=== PATIENT | male | born 1985 | race Two or more races ===

== ENCOUNTER 2020-06-02 06:13 | Inpatient (IN) | payer MEDICAID ==
[2020-06-02] VITALS (14 sets, daily range): BP systolic 100–140; BP diastolic 54–92
[~2020-06-02] VITALS: Ht 167.6 cm; Wt 71.2 kg
--- NOTE | 2020-06-02 06:15 | NUR ---
bibra 102 from home c/o sob and fatigue x 2 days; also epigastric pain x 3 days ago, which has resolved on arrival. pt noted anxious at this time; pt to bed 6, aaox4, -sob, nad noted, placed on monitor, vss, pending er provider amaury
[2020-06-02] MEDS ORDERED: ONDANSETRON HCL/PF 4 MG/2 ML VIAL ONE (06:52)
[2020-06-02] MEDS ORDERED: LORAZEPAM INJ 2 MG/ML VIAL ONE (06:52)
[2020-06-02] MEDS ORDERED: IV NS 0.9% 1,000 ML BAG IV ONE ×2 (07:00→07:30)
[2020-06-02] MEDS ORDERED: ONDANSETRON HCL/PF 4 MG/2 ML VIAL IVP ONE (07:00)
[2020-06-02] MEDS ORDERED: LORAZEPAM INJ 2 MG/ML VIAL IV ONE (07:00)
[2020-06-02] MEDS ORDERED: INSULIN REGULAR, HUMAN 100 UNIT in IV NS 0.9% 99 ML IV STA ×2 (07:05)
--- NOTE | 2020-06-02 07:14 | NUR ---
called pharm for insulin drip
[2020-06-02 07:18] LABS: BASOPHILS % (AUTO) 0.1 % (0.0-2.0); HEMATOCRIT 57 % (39-51); LYMPHOCYTES # (AUTO) 0.4 /CMM (0.8-4.8); LYMPHOCYTES % (AUTO) 3.9 % (20.0-44.0); MEAN CORPUSCULAR HGB CONC 34 g/dl (31.0-36.0); MEAN CORPUSCULAR VOLUME 99 fL (80-96); MONOCYTES # (AUTO) 1.6 /CMM (0.1-1.30); MONOCYTES % (AUTO) 14.3 % (2.0-12.0); NEUTROPHILS # (AUTO) 9.1 /CMM (1.8-8.9); NEUTROPHILS % (AUTO) 81.7 % (43.0-81.0); PLATELET COUNT (AUTO) 278 /CMM (150-450); RED BLOOD CELL COUNT(AUTO) 5.74 MIL/uL (4.5-6.0); WHITE BLOOD COUNT (AUTO) 11.2 K/uL (4.3-11.0)
[2020-06-02 07:24] LABS: ABG BASE EXCESS -24.9 mmol/L; ABG OXYGEN SATURATION 97.3 % (92.0-98.5); ABG PCO2 11.5 mmHg (35.0-45.0); ABG PH 7.051 (7.350-7.450); ABG PO2 126.8 mmHg (75.0-100.0); AaDO2 9.2 mmHg; COHb 0.3 % (0.5-1.5); MetHb 0.5 % (0.0-1.5); O2Hb 96.5 % (94.0-97.0); SITE, ABG Right Radial; VENT MODE, BG ROOM AIR
[2020-06-02 07:25] LABS: HEMOGLOBIN 19.1 g/dL (13.5-17.5)
[2020-06-02] MEDS ORDERED: INSULIN REGULAR, HUMAN 100 UNIT/ML 10 ML VIAL ONE (07:28)
[2020-06-02] MEDS ORDERED: INSULIN REGULAR, HUMAN 100 UNIT/ML 10 ML VIAL IV ONE (07:30)
[2020-06-02 07:36] LABS: ALANINE AMINOTRANSFERASE 205 U/L (12-78); ALKALINE PHOSPHATASE 107 U/L (46-116); ASPARTATE AMINOTRANSFERASE 86 U/L (15-37); BILIRUBIN,DIRECT 0.2 mg/dL (0.0-0.2); BILIRUBIN,TOTAL 0.8 mg/dL (0.2-1.0); CALCIUM, SERUM 7.8 mg/dL (8.5-10.1); CREATININE 1.5 mg/dL (0.6-1.3); LIPASE 279 U/L (73-393); POTASSIUM 2.9 mmol/L (3.5-5.1); SODIUM SERUM 121 mmol/L (136-145); TOTAL PROTEIN, SERUM 8.5 g/dL (6.4-8.2); UREA NITROGEN, BLOOD 30 mg/dL (7-18)
--- NOTE | 2020-06-02 07:43 | NUR ---
CALLED [facility]RE[facility]
[2020-06-02 07:50] LABS: CARBON DIOXIDE 5 mmol/L (21-32); CHLORIDE 79 mmol/L (98-107); GLUCOSE 429 mg/dL (74-106)
[2020-06-02 08:03] LABS: BAND % (MANUAL) 4 % (0.0-5.0); LYMPHOCYTES % (MANUAL) 4 % (16-48); MONOCYTES % (MANUAL) 11 % (0-11.0); NEUTROPHILS % (MANUAL) 81 (42-76)
--- NOTE | 2020-06-02 08:09 | NUR ---
[facility] PANEL PAGED X2 -EDDI MENDEZ
--- NOTE | 2020-06-02 08:49 | NUR ---
ROOM GIVEN 256 ICU.
[2020-06-02] MEDS ORDERED: CEFTRIAXONE 1GM BAG (ER ONLY) 1 GM/50 ML PIGGYBACK IV ONE (09:00)
[2020-06-02] MEDS ORDERED: AZITHROMYCIN 500 MG in IV D5W 250 ML IV ONE (09:00)
[2020-06-02] MEDS ORDERED: CEFTRIAXONE 1GM BAG (ER ONLY) 50 ML IV ONE (09:01)
--- NOTE | 2020-06-02 09:03 | NUR ---
report given to reza frank for syed; pt will be transported to icu
--- NOTE | 2020-06-02 09:20 | NUR ---
PT ARRIVED IN ICU ROOM 255. PT SOB, ALERT OX3. ANSWERS QUESTIONS APPROPRIATELY. DR. EDDI MENDEZ NOTIFIED FOR NEED FOR INPATIENT ORDERS. PT STATES HIS COUSIN WAS COVID POSITIVE AND HIS WHOLE FAMILY LIVES TOGETHER. 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 INSULIN GTT INFUSING FROM ER. WILL CONTINUE TO MONITOR.
[2020-06-02] MEDS ORDERED: POTASSIUM CHLORIDE 20 MEQ TAB.PRT.SR PO ONE (09:30)
[2020-06-02] MEDS ORDERED: IV NS 0.9% 1,000 ML IV STA (11:04)
[2020-06-02] MEDS ORDERED: Z GUARD REMEDY 2 OZ OINT TP PRN (11:30)
[2020-06-02] MEDS ORDERED: IV NS 0.9% 1,000 ML IV PRN (11:30)
[2020-06-02] MEDS: INSULIN REGULAR, HUMAN 100 UNIT in IV NS 0.9% 99 ML IV PRN ×4 (11:30→20:38)
[2020-06-02] MEDS ORDERED: LORAZEPAM INJ 2 MG/ML VIAL IV PRN (11:30)
[2020-06-02 11:47] LABS: BASOPHILS % (AUTO) 0.1 % (0.0-2.0); HEMATOCRIT 50 % (39-51); HEMOGLOBIN 17.1 g/dL (13.5-17.5); LYMPHOCYTES # (AUTO) 0.4 /CMM (0.8-4.8); LYMPHOCYTES % (AUTO) 3.3 % (20.0-44.0); MEAN CORPUSCULAR HGB CONC 34 g/dl (31.0-36.0); MEAN CORPUSCULAR VOLUME 98 fL (80-96); MONOCYTES # (AUTO) 2.1 /CMM (0.1-1.30); MONOCYTES % (AUTO) 19.1 % (2.0-12.0); NEUTROPHILS # (AUTO) 8.6 /CMM (1.8-8.9); NEUTROPHILS % (AUTO) 77.5 % (43.0-81.0); PLATELET COUNT (AUTO) 218 /CMM (150-450); RED BLOOD CELL COUNT(AUTO) 5.14 MIL/uL (4.5-6.0); WHITE BLOOD COUNT (AUTO) 11.1 K/uL (4.3-11.0)
[2020-06-02] MEDS: ENOXAPARIN SODIUM 40 MG/0.4 ML DISP.SYRIN SQ SCH (12:47)
[2020-06-02] MEDS ORDERED: INVESTIGATIONAL MED MISC 1 EA in IV NS 0.9% 250 ML IV ONE (13:00)
[2020-06-02] MEDS: POTASSIUM CL. PREMIX PERIPHER. 50 ML IV SCH ×6 (13:06→18:55)
[2020-06-02] MEDS: DEXAMETHASONE SOD PHOSPHATE 10 MG/ML VIAL IV SCH (13:06)
[2020-06-02 14:05] LABS: LYMPHOCYTES % (MANUAL) 6 % (16-48); MONOCYTES % (MANUAL) 18 % (0-11.0); NEUTROPHILS % (MANUAL) 76 (42-76)
[2020-06-02 14:44] LABS: MAGNESIUM 2.7 mg/dL (1.8-2.4); POTASSIUM 3.1 mmol/L (3.5-5.1)
[2020-06-02 14:57] LABS: PHOSPHORUS 0.7 mg/dL (2.5-4.9)
--- NOTE | 2020-06-02 15:22 | NUR ---
LAB NOTIFIED RN OF CRITICAL PHOS OF 0.7, AND CO2 OF 8. DR. MAY AND DR. EDDI MENDEZ IN ICU, AWARE. DR. MAY ORDERED TO STOP THE INSULIN AT THIS TIME AND IS PUTTING IN MORE ORDERS. WILL CONTINUE TO MONITOR. RN ALSO RECEIVED CALL FROM PATIENTS SISTER TROY, . RN GAVE UPDATE INFORMATION TO TROY, OK'D BY PATIENT. PT WAS NOT ABLE TO REMEMBER FAMILY MEMBERS PHONE NUMBERS AND HE WANTED TO LET HIS FAMILY KNOW HE WAS ADMITTED TO THE HOSPITAL. RN INFORMED PATIENT THAT TROY WILL INFORM THE REST OF THE FAMILY AND WILL BE THE MAIN CONTACT PER FOR THE PATIENT SINCE PATIENTS MOTHER POLO DOES NOT SPEAK A LOT OF UZBEK. POLO'S NUMBER IS [phone]. RN WILL UPDATE ADMISSIONS WITH BOTH PHONE NUMBERS. Addendum: 06/02/20 at 1539 by KYM NASCIMENTO RN CORRECTION DR. MAY DOES NOT WANT THE INSULIN GTT STOPPED AT THIS TIME. HE DOES NOT WANT ANY DEXTROSE GIVEN UNTIL PATIENTS PHOSPHORUS GOES BACK TO NORMAL.
[2020-06-02 15:36] LABS: CALCIUM, SERUM 6.2 mg/dL (8.5-10.1); CREATININE 0.9 mg/dL (0.6-1.3); MAGNESIUM 2.4 mg/dL (1.8-2.4); PHOSPHORUS 0.5 mg/dL (2.5-4.9); POTASSIUM 3.6 mmol/L (3.5-5.1)
[2020-06-02] MEDS ORDERED: K PHOS NEUTRAL 250 MG TABLET PO ONE ×3 (16:00→23:30)
[2020-06-02 16:35] LABS: CALCIUM, SERUM 6.7 mg/dL (8.5-10.1); CHLORIDE 93 mmol/L (98-107); CREATININE 0.9 mg/dL (0.6-1.3); GLUCOSE 164 mg/dL (74-106); MAGNESIUM 2.8 mg/dL (1.8-2.4); PHOSPHORUS 1.2 mg/dL (2.5-4.9); SODIUM SERUM 127 mmol/L (136-145); UREA NITROGEN, BLOOD 25 mg/dL (7-18)
[2020-06-02 16:38] LABS: CARBON DIOXIDE 3 mmol/L (21-32)
[2020-06-02] MEDS: POTASSIUM PHOSPHATE MM 7.5 MMOL in IV NS 0.9% 100 ML IV SCH ×2 (16:45→20:33)
--- NOTE | 2020-06-02 17:17 | NUR ---
PER DR. EDDI MENDEZ PT IS TO STAY 1:1 FOR NURSING D/T INSTABILITY UNTIL HE CHANGES THE ORDER WHEN PATIENT STABILIZES
[2020-06-02 18:08] LABS: CALCIUM, SERUM 6.5 mg/dL (8.5-10.1); CREATININE 0.8 mg/dL (0.6-1.3); MAGNESIUM 2.4 mg/dL (1.8-2.4); POTASSIUM 4.1 mmol/L (3.5-5.1)
[2020-06-02 18:11] LABS: PHOSPHORUS 0.6 mg/dL (2.5-4.9)
--- NOTE | 2020-06-02 18:20 | NUR ---
DR. EDDI MENDEZ AND DR. MAY NOTIFIED OF 1700 CO2 OF 8 AND PHOSPHORUS OF 0.6.
[2020-06-02] MEDS: CHOLECALCIFEROL 1,000 UNIT TABLET (VIT D3) PO SCH (18:27)
[2020-06-02] MEDS: ZINC SULFATE 220 MG CAPSULE PO SCH (18:27)
--- NOTE | 2020-06-02 19:00 | NUR ---
RECEIVED PATIENT AWAKE,ALERT,CONVERSES,ORIENTED X 3, ON CONTACT/ENHANCED DROPLET ISOLATION FOR COVID (RAPID TEST +,PENDING PCR). STATES FEELING SICK AND WEAK,NO FEVER ,DENIES ANY COUGH,DENIES ANY SORE THROAT BUT ADMITS TO SOME ESOPHAGEAL PAIN,STILL NPO. ON INSULIN DRIP NOW @ 1.9 UNITS/HR(LAST SC=963) FINGER STICK BS CHECH Q 1 HR. AND BMP Q 2 HRS.(PHOS =0.6), WILL CHANGE IV FLUID TO D5NSS WITH 20 KCL @ 150 ML/HR (ONCE AVAILABLE), KPHOS REPLACEMENT bag #1 of 2 infusing. WILL CLOSELY MONITOR ,PATIENT SLIGHTLY TACHYPNEIC RR=28-30'S BUT SATURATING WELL 100 % ON ROOM AIR,PATIENT DENIES ANY SOB.COMFORT CARE DONE,NEEDS ATTENDED.
--- NOTE | 2020-06-02 19:30 | NUR ---
END OF SHIFT NOTE: PT HAD A BUSY SHIFT. BMP Q2H, INSULIN GTT. CLOSELY MONITORED PT'S POTASSIUM, BLOOD SUGAR, CO2, PHOS LABS. REPLACEMENT POTASSIUM AND PHOS GIVEN PER MD ORDERS. PT LETHARGIC, OX3. PER DR. EDDI MENDEZ CENTRAL LINE WILL WAIT TILL TOMORROW. CONSENT FOR CONVALESCENT PLASMA AND CENTRAL LINE ARE ON CHART. 1ST DOSE OF REMDESIVIR GIVEN ON THIS SHIFT. PT CHECKED ON HOURLY AND PRN BY NURSING STAFF.
[2020-06-02 19:37] LABS: CALCIUM, SERUM 6.3 mg/dL (8.5-10.1); CREATININE 0.8 mg/dL (0.6-1.3); MAGNESIUM 2.3 mg/dL (1.8-2.4)
[2020-06-02 19:39] LABS: PHOSPHORUS 0.7 mg/dL (2.5-4.9)
[2020-06-02] MEDS: Potassium Chloride 20 MEQ in IV D5/ 0.9% NACL 1,000 ML IV PRN (19:50)
--- NOTE | 2020-06-02 20:00 | NUR ---
phos =0.7 ,PHOS REPLACEMENT STILL INFUSING
[2020-06-02 21:36] LABS: CALCIUM, SERUM 6.4 mg/dL (8.5-10.1); CREATININE 0.9 mg/dL (0.6-1.3)
[2020-06-02 21:41] LABS: MAGNESIUM 2.3 mg/dL (1.8-2.4); PHOSPHORUS 0.8 mg/dL (2.5-4.9)
--- NOTE | 2020-06-02 23:00 | NUR ---
BMP DRAWN.KPHOS IV PEPLACEMENT STILL INFUSING.PATIENT REMAINS AWAKE,ALERT,COOPERATIVE ,STABLE BUT FEELING VERY WEAK AND FEELING "AWFUL", WILL CLOSELY MONITOR .
[2020-06-02 23:28] LABS: CALCIUM, SERUM 6.2 mg/dL (8.5-10.1); CREATININE 0.8 mg/dL (0.6-1.3); POTASSIUM 3.8 mmol/L (3.5-5.1)
[2020-06-02] MEDS ORDERED: NS 0.9% IV SCH (23:30)
[2020-06-02] MEDS ORDERED: SODIUM PHOSPHATE IV SCH (23:30)
--- NOTE | 2020-06-02 23:30 | NUR ---
NOTED ORDERS ENTERED BY EDDI MENDEZ, SODIUM PHOS 90 mmol IN 250 ml. NSS to run at 15.5 ml/hr. . ALSO IN THE UNIT MAKING ROUNDS ,UPDATED HIM ON PATIENT'S STATUS (LATEST PHOS) 5772 Called Nursing carpenter supervisor to contact unified communications architect Pharmacist to mix above NaPhos replacement , spoke to Peg nursing carpenter supervisor,she contacted unified communications architect pharmacist right away. WILL HANG REPLACEMENT SOON AVAILABLE.
[2020-06-02 23:35] LABS: MAGNESIUM 2.3 mg/dL (1.8-2.4)
[2020-06-02 23:37] LABS: PHOSPHORUS 0.7 mg/dL (2.5-4.9)
[2020-06-03] VITALS (24 sets, daily range): BP systolic 96–130; BP diastolic 52–79
[2020-06-03] MEDS ORDERED: Sodium Phosphate 30 MMOL in IV NS 0.9% 250 ML IV SCH ×3 (00:30→04:00)
--- NOTE | 2020-06-03 00:30 | NUR ---
REMAINS AWAKE AND ALERT, COHERENT ,CONVERSES,JUST C/O WEAKNESS.NOT IN ANY DISTRESS,TOLERATING ROOM AIR,SATURATING 98 %.SODIUM PHOS REPLACEMENT INFUSING.WILL CONTINUE TO MONITOR NEURO STATUS.
[2020-06-03 01:36] LABS: CALCIUM, SERUM 6.1 mg/dL (8.5-10.1); CREATININE 0.9 mg/dL (0.6-1.3); POTASSIUM 3.3 mmol/L (3.5-5.1)
[2020-06-03 01:40] LABS: MAGNESIUM 2.3 mg/dL (1.8-2.4)
[2020-06-03] MEDS: INSULIN REGULAR, HUMAN 100 UNIT in IV NS 0.9% 99 ML IV PRN ×2 (01:54)
--- NOTE | 2020-06-03 02:00 | NUR ---
STATUS UNCHANGED,REMAINS AWAKE.,ALERT,NO NEURO DEFICIT.NOT IN ANY RESPIRATORY DISTRESS.INSULIN DRIP 2 2.7 UNITS /HR.
[2020-06-03 02:44] LABS: APPEARANCE,URINE CLEAR (CLEAR); BILIRUBIN,URINE NEGATIVE (NEGATIVE); BLOOD, URINE TRACE-INTA Ery/uL (NEGATIVE); COLOR,URINE YELLOW (YELLOW); KETONES,URINE >=80 (NEGATIVE); LEUKOCYTE ESTERASE ,URINE NEGATIVE (NEGATIVE); NITRITE, URINE NEGATIVE (NEGATIVE); PROTEIN,URINE TRACE mg/dl (NEGATIVE); UGLUCOSE 500 MG/DL mg/dL (NEGATIVE); UROBILINOGEN,URINE 0.2 EU/dL (0.2)
[2020-06-03] MEDS: Potassium Chloride 20 MEQ in IV D5/ 0.9% NACL 1,000 ML IV PRN ×3 (03:22→21:01)
[2020-06-03 03:28] LABS: ALBUMIN 2.7 g/dL (3.4-5.0); BILIRUBIN,DIRECT 0.1 mg/dL (0.0-0.2); BILIRUBIN,TOTAL 0.5 mg/dL (0.2-1.0); CREATININE 0.8 mg/dL (0.6-1.3); MAGNESIUM 2.3 mg/dL (1.8-2.4); PHOSPHORUS 1.4 mg/dL (2.5-4.9); TOTAL PROTEIN, SERUM 5.8 g/dL (6.4-8.2)
[2020-06-03 03:30] LABS: CALCIUM, SERUM 5.9 mg/dL (8.5-10.1)
--- NOTE | 2020-06-03 03:30 | NUR ---
LATEST BMP RESULT .CALCIUM 5.9, PHOS =1.4, K=3.0. 0340 PUT IN A CALL TO THE SERVICE FOR DR. JAY TO RELAY LATEST LAB. AWAITING RESPONSE.
--- NOTE | 2020-06-03 04:00 | NUR ---
DR. SYED DID NOT RESPOND YET. PUT IN ANOTHER CALL TO THE SERVICE FOR .
[2020-06-03 04:11] LABS: BACTERIA,URINE None seen /HPF (None Seen); MUCUS,URINE Few /LPF (None Seen); RBC,URINE 0-2 /HPF (0-2); SQUAMOUS EPITHELIAL CELL,UR Few /HPF (None Seen); WBC,URINE 0-2 /HPF (0-3)
[2020-06-03 04:12] LABS: URINE AMORPHOUS URATE Few /HPF (None Seen)
--- NOTE | 2020-06-03 04:15 | NUR ---
RESPONDED, ORDERED KPHOS REPLACEMENT ,MADE HIM AWARE KPHOS WILL NEED TO BE MIXED BY PHARMACY ONLY AND THE'RE NOT IN HOUSE AT THIS TIME TILL 0600, ORDERED KCL REPLACEMENT FOR NOW TILL KPHOS IS AVAILABLE.
[2020-06-03] MEDS: POTASSIUM CL. PREMIX PERIPHER. 50 ML IV SCH ×12 (04:45→23:32)
--- NOTE | 2020-06-03 05:32 | NUR ---
FOLLOWED UP FROM BLOOD BANK IF CONVALESCENT PLASMA IS AVAILABLE NOW, STATES THEY WILL CALL THE UNIT ONCE AVAILABLE.
[2020-06-03 05:42] LABS: BASOPHILS % (AUTO) 0.4 % (0.0-2.0); HEMATOCRIT 40 % (39-51); HEMOGLOBIN 14.2 g/dL (13.5-17.5); LYMPHOCYTES # (AUTO) 0.4 /CMM (0.8-4.8); LYMPHOCYTES % (AUTO) 6.5 % (20.0-44.0); MEAN CORPUSCULAR HGB CONC 35 g/dl (31.0-36.0); MEAN CORPUSCULAR VOLUME 94 fL (80-96); MONOCYTES # (AUTO) 1.1 /CMM (0.1-1.30); MONOCYTES % (AUTO) 15.8 % (2.0-12.0); NEUTROPHILS # (AUTO) 5.4 /CMM (1.8-8.9); NEUTROPHILS % (AUTO) 77.3 % (43.0-81.0); PLATELET COUNT (AUTO) 154 /CMM (150-450); RED BLOOD CELL COUNT(AUTO) 4.31 MIL/uL (4.5-6.0); WHITE BLOOD COUNT (AUTO) 6.9 K/uL (4.3-11.0)
[2020-06-03 05:53] LABS: ALBUMIN 2.6 g/dL (3.4-5.0); BILIRUBIN,TOTAL 0.5 mg/dL (0.2-1.0); CREATININE 0.8 mg/dL (0.6-1.3); MAGNESIUM 2.1 mg/dL (1.8-2.4); PHOSPHORUS 1.5 mg/dL (2.5-4.9); TOTAL PROTEIN, SERUM 5.5 g/dL (6.4-8.2)
[2020-06-03 05:58] LABS: CALCIUM, SERUM 5.8 mg/dL (8.5-10.1); POTASSIUM 2.6 mmol/L (3.5-5.1)
[2020-06-03 06:26] LABS: LYMPHOCYTES % (MANUAL) 7 % (16-48); MONOCYTES % (MANUAL) 16 % (0-11.0); NEUTROPHILS % (MANUAL) 77 (42-76)
--- NOTE | 2020-06-03 07:00 | NUR ---
REMAINS STABLE BUT CRITICAL DUE TO ELECTROLYTES IMBALANCE NOT IN ANY DISTRESS,STILL FEELING VERY WEAK.REMAINS AWAKE,ALERT,WITH NO NEUROLOGICAL DEFICIT. K AN DPHOS REPLACEMENT STILL ON GOING.PENDING CONVALESCENT PLASMA TRANSFUSION . ENDORSED TO SETH IRVIN.
--- NOTE | 2020-06-03 07:30 | NUR ---
DIALYSIS CLINICAL MANAGER NOTE RECEIVED PATIENT ASLEEP, AROUSABLE, PATIENT SLEEPY. DENIES PAIN OR DISCOMFORT. DENIES CHEST PAIN. DENIES SOB. STATES HE FEELS BETTER TODAY THAN YESTERDAY. SKIN WARM AND DRY TO TOUCH. NO DISTRESS NOTED, ON ROOM AIR. ON TELE MONITOR SINUS TACH. ISOLATION PRECAUTIONS OBSERVED FOR COVID. MULTIPLE DRIPS INFUSING. SIDE RAILS UP AND LOCKED. BED KEPT AT LOWEST POSITION. CALL LIGHT KEPT WITHIN EASY REACH. WILL CONTINUE TO MONITOR.
[2020-06-03 08:00] LABS: CREATININE 0.8 mg/dL (0.6-1.3); MAGNESIUM 2.1 mg/dL (1.8-2.4); PHOSPHORUS 1.9 mg/dL (2.5-4.9)
[2020-06-03] MEDS: DEXAMETHASONE SOD PHOSPHATE 10 MG/ML VIAL IV SCH (08:00)
[2020-06-03] MEDS: ZINC SULFATE 220 MG CAPSULE PO SCH (08:00)
[2020-06-03] MEDS: ENOXAPARIN SODIUM 40 MG/0.4 ML DISP.SYRIN SQ SCH (08:00)
[2020-06-03] MEDS: CHOLECALCIFEROL 1,000 UNIT TABLET (VIT D3) PO SCH (08:00)
[2020-06-03 08:18] LABS: CALCIUM, SERUM 5.9 mg/dL (8.5-10.1); POTASSIUM 2.6 mmol/L (3.5-5.1)
[2020-06-03] MEDS: BLOOD SUGAR DIAGNOSTIC 1 EACH STRIP IN SCH ×16 (08:18→23:10)
[2020-06-03] MEDS: POTASSIUM PHOSPHATE MM 7.5 MMOL in IV NS 0.9% 100 ML IV SCH ×2 (08:22→11:05)
[2020-06-03] MEDS ORDERED: POTASSIUM PHOSPHATE MM 7.5 MMOL in IV NS 0.9% 100 ML IV SCH (08:30)
[2020-06-03] MEDS: CEFTRIAXONE 1 G in IV D5W 50 ML IV SCH (09:16)
[2020-06-03] MEDS: AZITHROMYCIN 500 MG in IV D5W 250 ML IV SCH (10:31)
[2020-06-03 10:41] LABS: CREATININE 0.8 mg/dL (0.6-1.3)
[2020-06-03 11:24] LABS: CALCIUM, SERUM 5.9 mg/dL (8.5-10.1); POTASSIUM 2.7 mmol/L (3.5-5.1)
--- NOTE | 2020-06-03 11:44 | NUR ---
COFFEE ATTENDANT NOTE RELAYED POTASSIUM LEVEL 2.[address] MENDEZ. WITH NO NEW ORDERS AT THIS TIME. WILL CONTINUE TO MONITOR.
[2020-06-03] MEDS ORDERED: K PHOS NEUTRAL 250 MG TABLET PO ONE (12:30)
[2020-06-03] MEDS ORDERED: Calcium Gluconate 1GM/10ML 4.65 MEQ in IV D5W 50 ML IV ONE (12:30)
--- NOTE | 2020-06-03 12:45 | NUR ---
MENDER HAND NOTE DR MENDEZ AT BEDSIDE PLACING PICC LINE
[2020-06-03] MEDS: INVESTIGATIONAL MED MISC 1 EA in IV NS 0.9% 250 ML IV SCH (13:19)
[2020-06-03] MEDS: CALCITRIOL 0.25 MCG CAPSULE PO SCH (13:32)
[2020-06-03 13:48] LABS: CALCIUM, SERUM 6.1 mg/dL (8.5-10.1); CREATININE 0.7 mg/dL (0.6-1.3)
[2020-06-03 13:53] LABS: POTASSIUM 2.7 mmol/L (3.5-5.1)
[2020-06-03 14:27] LABS: CREATININE 0.7 mg/dL (0.6-1.3)
[2020-06-03 14:29] LABS: CALCIUM, SERUM 5.7 mg/dL (8.5-10.1); POTASSIUM 2.7 mmol/L (3.5-5.1)
[2020-06-03 16:51] LABS: CREATININE 0.6 mg/dL (0.6-1.3)
[2020-06-03 16:52] LABS: POTASSIUM 2.6 mmol/L (3.5-5.1)
[2020-06-03] MEDS: ONDANSETRON HCL/PF 4 MG/2 ML VIAL IVP PRN (17:50)
--- NOTE | 2020-06-03 18:00 | NUR ---
CONTRACTING SPECIALIST NOTE PATIENT REQUESTED TO USE BATHROOM, OFFERED BEDSIDE COMMODE, PATIENT REFUSED. STANDBY ASSIST WHILE PATIENT WALKED TO BATHROOM. ASSISTED PATIENT BACK TO BED. WILL CONTINUE TO MONITOR.
--- NOTE | 2020-06-03 18:32 | NUR ---
CAPITAL CAMPAIGN FUNDRAISER NOTE RELAYED TO DR MENDEZ REGARDING PATIENT SODIUM 133 AND POTASSIUM 2.6. PENDING 1800 BMP RESULTS. PER MD NNO AT THIS TIME UNTIL NEW RESULTS COME IN. CLARIFIED ONE ON ONE ORDER. OK TO DC. PATIENT RESTING COMFORTABLY IN BED. NO DISTRESS NOTED. ON ROOM AIR. SKIN WARM AND DRY TO TOUCH. ALL DUE MEDS GIVEN. PATIENT ON INSULIN DRIP, IVF. HOB ELEVATED. SIDE RAILS UP AND LOCKED. BED KEPT AT LOWEST POSITION. CALL LIGHT IN REACH. WILL ENDORSE CONTINUITY OF CARE TO PM NURSE.
--- NOTE | 2020-06-03 19:15 | NUR ---
RN NOTE PT RESTING IN BED ALERT AND ORIENTED X 4. ON ROOM AIR. DENIES PAIN OR DISCOMFORT. VITAL SIGNS STABLE ON BED SIDE MONITOR. ASSISTED WITH URINAL AT BEDSIDE. ON INSULIN DROP ORDERED. ON IVF FLUIDS ORDERED. ALL IV LINES FLUSHED AND PATENT WITHOUT SIGNS OF COMPLICATIONS AT SITE. PLAN OF CARE DISCUSSED. CALL LIGHT WITHIN REACH, SAFETY MEASURES IN PLACE, WILL MONITOR.
[2020-06-03 20:19] LABS: CREATININE 0.6 mg/dL (0.6-1.3)
[2020-06-03 20:21] LABS: POTASSIUM 2.8 mmol/L (3.5-5.1)
[2020-06-03 20:22] LABS: CALCIUM, SERUM 5.8 mg/dL (8.5-10.1)
[2020-06-03 20:31] LABS: MAGNESIUM 1.9 mg/dL (1.8-2.4); PHOSPHORUS 1.2 mg/dL (2.5-4.9)
--- NOTE | 2020-06-03 20:46 | NUR ---
RN NOTE NOTED WITH CA 5.8. PAGED [facility] [employer].
--- NOTE | 2020-06-03 21:24 | NUR ---
RN NOTE MISTY FERRARA NOTIFIED OF CALCIUM LEVEL 5.8 WITH NO NEW ORDERS.
--- NOTE | 2020-06-03 22:21 | NUR ---
RN NOTE PT REQUESTED TO HAVE DVT PUMPS REMOVED. EXPLAINED RISKS VS ADVANTAGES BUT PT STILL REFUSING DVT PUMPS AT THIS TIME.
[2020-06-04] VITALS (25 sets, daily range): BP systolic 91–127; BP diastolic 50–93
--- NOTE | 2020-06-04 | NUR ---
RN NOTE ONGOING INSULIN DRIP INFUSION ORDERED. VITAL SIGNS WNL VIA BEDSIDE MONITOR. OFFERED PATIENT BED BATH BUT PT REFUSED STATING THAT HE WANTS TO SLEEP. COMPLETE LINEN CHANGE AND GOWN CHANGE COMPLETED. REFUSED TO HAVE DVT PUMPS APPLIED . WILL CONTINUE TO MONITOR PATIENT.
[2020-06-04] MEDS: BLOOD SUGAR DIAGNOSTIC 1 EACH STRIP IN SCH ×14 (00:34→21:30)
[2020-06-04] MEDS: INSULIN REGULAR, HUMAN 100 UNIT in IV NS 0.9% 99 ML IV PRN ×2 (00:36)
[2020-06-04 00:51] LABS: CREATININE 0.6 mg/dL (0.6-1.3)
[2020-06-04 00:59] LABS: CALCIUM, SERUM 5.8 mg/dL (8.5-10.1)
--- NOTE | 2020-06-04 01:10 | NUR ---
RN NOTE RECEIVED ALERT FOR CA 5.8. DR. JAY MADE AWARE WITH NO NEW ORDERS.
[2020-06-04] MEDS: Potassium Chloride 20 MEQ in IV D5/ 0.9% NACL 1,000 ML IV PRN (02:56)
--- NOTE | 2020-06-04 04:00 | NUR ---
RN NOTE AM LABS DRAWN. PT STILL REFUSING BED BATH. WILL CONTINUE TO MONITOR.
[2020-06-04 05:02] LABS: BASOPHILS % (AUTO) 0.1 % (0.0-2.0); EOSINOPHILS % (AUTO) 0.1 % (0.0-6.0); HEMATOCRIT 37 % (39-51); HEMOGLOBIN 13.4 g/dL (13.5-17.5); LYMPHOCYTES # (AUTO) 0.8 /CMM (0.8-4.8); LYMPHOCYTES % (AUTO) 15.9 % (20.0-44.0); MEAN CORPUSCULAR HGB CONC 36 g/dl (31.0-36.0); MEAN CORPUSCULAR VOLUME 93 fL (80-96); MONOCYTES # (AUTO) 0.6 /CMM (0.1-1.30); MONOCYTES % (AUTO) 13.6 % (2.0-12.0); NEUTROPHILS # (AUTO) 3.3 /CMM (1.8-8.9); NEUTROPHILS % (AUTO) 70.3 % (43.0-81.0); PLATELET COUNT (AUTO) 131 /CMM (150-450); RED BLOOD CELL COUNT(AUTO) 3.98 MIL/uL (4.5-6.0); WHITE BLOOD COUNT (AUTO) 4.7 K/uL (4.3-11.0)
[2020-06-04 05:34] LABS: ALBUMIN 2.5 g/dL (3.4-5.0); BILIRUBIN,DIRECT 0.2 mg/dL (0.0-0.2); BILIRUBIN,TOTAL 0.7 mg/dL (0.2-1.0); CREATININE 0.5 mg/dL (0.6-1.3); TOTAL PROTEIN, SERUM 5.5 g/dL (6.4-8.2)
[2020-06-04 05:49] LABS: CALCIUM, SERUM 5.9 mg/dL (8.5-10.1); POTASSIUM 2.8 mmol/L (3.5-5.1)
[2020-06-04 05:50] LABS: PHOSPHORUS 0.8 mg/dL (2.5-4.9)
--- NOTE | 2020-06-04 06:09 | NUR ---
RN NOTE RECEIVED ALERT FOR CRITICAL LABS: POTASSIUM 2.8, CALCIUM 5.9, PHOSPHOROUS 0.8. PAGED DR. JAY.
--- NOTE | 2020-06-04 06:14 | NUR ---
RN NOTE RECEIVED ORDER FROM DR. JAY TO ADMINISTER KPHOS 15MMOL IV. ORDER NOTED AND CARRIED OUT.
[2020-06-04] MEDS ORDERED: POTASSIUM PHOSPHATE MM 15 MMOL in IV NS 0.9% 250 ML IV SCH (06:30)
--- NOTE | 2020-06-04 07:08 | NUR ---
RN NOTE PT AWAKE AND ALERT X 4. ON ROOM AIR. INSULIN DRIP INFUSING ORDERED. VITAL SIGNS WNL. AWAITING KPHOS 15MMOL IV FROM PHARMACY. IVF RUNNING ORDERED. IV SITES WITHOUT SIGNS OF COMPLICATIONS. STILL REFUSING DVT PUMPS. KEPT COMFORTABLE. ALL NEEDS MET AND ATTENDED TO. CALL LIGHT WITHIN REACH, SAFETY MEASURES IN PLACE, ENDORSED TO MORNING RN FOR CONTINUATION OF CARE.
[2020-06-04 07:18] LABS: CALCIUM, SERUM 6.2 mg/dL (8.5-10.1); CREATININE 0.5 mg/dL (0.6-1.3)
[2020-06-04 07:21] LABS: POTASSIUM 2.7 mmol/L (3.5-5.1)
--- NOTE | 2020-06-04 07:27 | NUR ---
PATIENT POTASSIUM LEVEL OF 2.7 REPORTED BY LAB. PHOSPHOROUS LEVEL OF 0.8 NOT REPORTED BY LAB, BUT NOTED BY ME. DR. MENDEZ NOTIFIED OF BOTH LAB VALUES. AWAITING ORDERS
--- NOTE | 2020-06-04 07:30 | NUR ---
RECEIVED PATIENT IN BED. NO ACUTE DISTRESS NOTED. PATIENT ALERT & ORIENTED X4. NO COMPLAINTS OF PAIN AT THIS TIME. PATIENT ON ROOM AIR SATURATING AT 97-100%, BREATHING EVEN AND UNLABORED. PATIENT NPO EXCEPT MEDS STATUS ACKNOWLEDGED. PATIENT PRECIOUS PICC LINE IN PLACE, INTACT, PATENT, FLUSHED WELL. PATIENT RIGHT AC IV ACCESS IN PLACE, INTACT, PATENT, FLUSHED WELL. PATIENT POTASSIUM OF 2.7 REPORTED BY LAB, DR. MENDEZ NOTIFIED. PATIENT PHOSPHOROUS LEVEL OF 0.8 NOTED, DR. MENDEZ NOTIFIED. AWAITING ORDERS. PATIENT SAFETY MEASURES MAINTAINED. CALL LIGHT WITHIN REACH. WILL CONTINUE TO MONITOR.
[2020-06-04] MEDS: DEXAMETHASONE SOD PHOSPHATE 10 MG/ML VIAL IV SCH (08:37)
[2020-06-04] MEDS: CEFTRIAXONE 1 G in IV D5W 50 ML IV SCH (08:38)
[2020-06-04] MEDS: ZINC SULFATE 220 MG CAPSULE PO SCH (08:40)
[2020-06-04] MEDS: CHOLECALCIFEROL 1,000 UNIT TABLET (VIT D3) PO SCH (08:40)
[2020-06-04] MEDS: ENOXAPARIN SODIUM 40 MG/0.4 ML DISP.SYRIN SQ SCH (08:41)
[2020-06-04] MEDS: CALCITRIOL 0.25 MCG CAPSULE PO SCH (09:13)
[2020-06-04] MEDS: AZITHROMYCIN 500 MG in IV D5W 250 ML IV SCH (09:29)
[2020-06-04] MEDS: K PHOS NEUTRAL 250 MG TABLET PO SCH ×3 (10:11→17:29)
[2020-06-04] MEDS: POTASSIUM CL. PREMIX PERIPHER. 50 ML IV SCH ×7 (10:11→23:29)
[2020-06-04] MEDS: ONDANSETRON HCL/PF 4 MG/2 ML VIAL IVP PRN ×3 (10:15→23:38)
[2020-06-04] MEDS ORDERED: DEXTROSE 50%-WATER 50 ML DISP.SYRIN IV PRN (11:00)
--- NOTE | 2020-06-04 11:20 | NUR ---
GAVE REPORT TO ALBARO ESPANA FOR CONTINUITY OF CARE
[2020-06-04] MEDS ORDERED: Calcium Gluconate 1GM/10ML 4.65 MEQ in IV D5W 50 ML IV ONE ×2 (11:30→23:00)
[2020-06-04] MEDS: Potassium Chloride 40 MEQ in IV NS 0.9% 1,000 ML IV PRN (12:51)
[2020-06-04] MEDS: INVESTIGATIONAL MED MISC 1 EA in IV NS 0.9% 250 ML IV SCH (15:10)
--- NOTE | 2020-06-04 16:17 | NUR ---
per RN endorsement, blood bank was contacted this am and a "william" stated that the conv. plasma is ready and thawing. However, upon calling blood bank for an update, Olga from blood bank states that there is no plasma there, no order and needs to put in a new request. paperwork was filled out two days ago Addendum: 06/04/20 at 1633 by MALORIE BURNHAM RN reentered plasma order
--- NOTE | 2020-06-04 16:38 | NUR ---
BLOOD BANK COMMUNICATION ERROR. plasma is available. picking up 1st unit of conv. plasma now and cancelling other order
[2020-06-04] MEDS: INSULIN REGULAR, HUMAN 100 UNIT/ML 3 ML VIAL SQ PRN ×3 (17:30→18:49)
[2020-06-04] MEDS: ACETAMINOPHEN 325 MG TABLET PO PRN (17:30)
--- NOTE | 2020-06-04 17:31 | NUR ---
6U regular insulin given @1300 for BG of 228, not scanned until now..
--- NOTE | 2020-06-04 19:23 | NUR ---
Shift Summary ICU 1U conv. plasma currently infusing, no s/s adverse reaction noted. Patient vomited x2 this shift, small amount of diarrhea, c/o weakness+generalized pain & headache, Tmax 99.6F orally. No SOB. on room air, SPO2 99%, respirations even and unlabored. Several critical labs - replaced per orders - CMP redraw @1999 Patient A/Ox4, tele monitor attached SR w/ rare PACs HR 70s, BP WNL. Voids clear yellow urine w/ urinal & ambulates to bathroom. Advised to call for help for fall prevention. PRECIOUS PICC infusing IVF, plasma & TKO/NS. Addendum: 06/04/20 at 1930 by MALORIE BURNHAM RN unable to document vitals in transfusion area. see brandy signs. temp the same, VSS, again, patient appears comfortable with no s/s reaction.
[2020-06-04 20:46] LABS: ALBUMIN 2.8 g/dL (3.4-5.0); BILIRUBIN,TOTAL 0.7 mg/dL (0.2-1.0); CALCIUM, SERUM 6.6 mg/dL (8.5-10.1); CREATININE 0.5 mg/dL (0.6-1.3); POTASSIUM 3.1 mmol/L (3.5-5.1); TOTAL PROTEIN, SERUM 5.9 g/dL (6.4-8.2)
--- NOTE | 2020-06-04 22:45 | NUR ---
notified Dr. El of electrolyte lab levels- potassium 3.1 and calcium and received orders to give 40 miller potassium iv and 1 gram calcium gluconate iv. read back orders performed and carried out. also notified of phos level 2.0 and magnesium level 2.1 with no new orders.
[2020-06-04] MEDS ORDERED: Calcium Gluconate 0.465 MEQ/ML VIAL IV ONE (22:52)
[2020-06-04 23:01] LABS: MAGNESIUM 2.1 mg/dL (1.8-2.4)
[2020-06-05] VITALS (19 sets, daily range): BP systolic 88–125; BP diastolic 31–78
[2020-06-05] MEDS: Potassium Chloride 40 MEQ in IV NS 0.9% 1,000 ML IV PRN ×2 (00:41→11:12)
[2020-06-05] MEDS: POTASSIUM CL. PREMIX PERIPHER. 50 ML IV SCH ×3 (00:41→02:37)
[2020-06-05] MEDS: BLOOD SUGAR DIAGNOSTIC 1 EACH STRIP IN SCH ×6 (00:47→21:07)
[2020-06-05] MEDS: INSULIN REGULAR, HUMAN 100 UNIT/ML 3 ML VIAL SQ PRN ×5 (00:49→21:04)
[2020-06-05 04:02] LABS: BASOPHILS # (AUTO) 0.1 /CMM (0.0-0.2); BASOPHILS % (AUTO) 1.6 % (0.0-2.0); EOSINOPHILS % (AUTO) 0.5 % (0.0-6.0); HEMATOCRIT 40 % (39-51); HEMOGLOBIN 14.1 g/dL (13.5-17.5); LYMPHOCYTES # (AUTO) 0.5 /CMM (0.8-4.8); LYMPHOCYTES % (AUTO) 12.4 % (20.0-44.0); MEAN CORPUSCULAR HGB CONC 36 g/dl (31.0-36.0); MEAN CORPUSCULAR VOLUME 93 fL (80-96); MONOCYTES # (AUTO) 0.5 /CMM (0.1-1.30); MONOCYTES % (AUTO) 13.6 % (2.0-12.0); NEUTROPHILS # (AUTO) 2.7 /CMM (1.8-8.9); NEUTROPHILS % (AUTO) 71.9 % (43.0-81.0); PLATELET COUNT (AUTO) 144 /CMM (150-450); RED BLOOD CELL COUNT(AUTO) 4.26 MIL/uL (4.5-6.0); WHITE BLOOD COUNT (AUTO) 3.7 K/uL (4.3-11.0)
[2020-06-05 04:15] LABS: ALBUMIN 2.9 g/dL (3.4-5.0); BILIRUBIN,DIRECT 0.1 mg/dL (0.0-0.2); BILIRUBIN,TOTAL 0.7 mg/dL (0.2-1.0); CALCIUM, SERUM 7.4 mg/dL (8.5-10.1); CREATININE 0.4 mg/dL (0.6-1.3); MAGNESIUM 2.1 mg/dL (1.8-2.4); PHOSPHORUS 1.5 mg/dL (2.5-4.9); POTASSIUM 4.2 mmol/L (3.5-5.1); TOTAL PROTEIN, SERUM 6.1 g/dL (6.4-8.2)
[2020-06-05] MEDS: ONDANSETRON HCL/PF 4 MG/2 ML VIAL IVP PRN ×3 (04:42→18:57)
--- NOTE | 2020-06-05 06:23 | NUR ---
Patient remains in no acute distress in bed. patient did not have any significant change in condition during shift. patient tolerating room air well. all needs met, all orders carried out. will endorse care to am RN for continuity of care.
--- NOTE | 2020-06-05 07:14 | NUR ---
BEADER NOTES RECEIVED PATIENT AOX4 , DENIES SOB AND DISCOMFORT AT THSI TIME , SPO2 OF 100% VIA RA , SR 75 ON BEDSIDE MONITOR , PRECIOUS PICC WITH NS WITH 40MEQ KCL @ 100ML/HR , INFUSING WELLL , ALL NEEDS ATTENDED , ISOLATION PREC OBSERVED , WILL CONTINUE TO MONITOR .
--- NOTE | 2020-06-05 07:46 | NUR ---
DORMITORY SUPERVISOR NOTES NOTIFIED EDDI MENDEZ REGARDING CALCIUM LEVELS OF THE PT S/P CALCIUM GLUCONATE , HOME HEALTH REGISTERED NURSE AWARE , NO NOW ORDERS RECEIVED.
[2020-06-05] MEDS: K PHOS NEUTRAL 250 MG TABLET PO SCH ×3 (08:02→16:46)
[2020-06-05] MEDS: CEFTRIAXONE 1 G in IV D5W 50 ML IV SCH (08:02)
[2020-06-05] MEDS: DEXAMETHASONE SOD PHOSPHATE 10 MG/ML VIAL IV SCH (08:02)
[2020-06-05] MEDS: CHOLECALCIFEROL 1,000 UNIT TABLET (VIT D3) PO SCH (08:02)
[2020-06-05] MEDS: ZINC SULFATE 220 MG CAPSULE PO SCH (08:03)
[2020-06-05] MEDS: ENOXAPARIN SODIUM 40 MG/0.4 ML DISP.SYRIN SQ SCH (08:04)
[2020-06-05] MEDS ORDERED: POTASSIUM PHOSPHATE MM 7.5 MMOL in IV NS 0.9% 100 ML IV SCH (08:30)
[2020-06-05] MEDS ORDERED: CALCITRIOL 0.25 MCG CAPSULE PO SCH (09:00)
[2020-06-05] MEDS ORDERED: POTASSIUM PHOSPHATE MM 15 MMOL in IV NS 0.9% 250 ML IV SCH (09:00)
[2020-06-05] MEDS: AZITHROMYCIN 500 MG in IV D5W 250 ML IV SCH (09:17)
--- NOTE | 2020-06-05 12:13 | NUR ---
WEAPONS OFFICER [employer] NOTES NOTIFIED PT COMPLAINS OF NAUSEA VOMITING AND DIARRHEA , ZOFRAN IVP PRN GIVEN , PER MD START PT ON IMODIUM 2MG Q4 PRN FOR DIARRHEA , ORDER CARRIED OUT
[2020-06-05] MEDS ORDERED: LOPERAMIDE HCL (2 MG CAP) 2 MG CAPSULE PO PRN (12:30)
[2020-06-05] MEDS: INVESTIGATIONAL MED MISC 1 EA in IV NS 0.9% 250 ML IV SCH (12:43)
[2020-06-05] MEDS: Potassium Chloride 10 MEQ in IV NS 0.9% 1,000 ML IV PRN (14:08)
--- NOTE | 2020-06-05 16:18 | NUR ---
RIVER CROSSING SUPERVISOR NOTES TRANSFERRED PT TO COVID UNIT ROOM 200 , PT STABLE , NO ACUTE EVENS NOTED , VSS , REPORT GIVEN TO TEREZA IRVIN FOR CONTINUITY OF CARE , ALL QUESTIONS ANSWERED ,
--- NOTE | 2020-06-05 16:20 | NUR ---
MS RN NOTES PATIENT TRANSFERRED FROM ICU TO ROOM 200, REPORT GIVEN BY ALBARO MARTINEZ. PATIENT VITAL SIGNS STABLE AT THIS TIME, ALERT AND ORIENTED X 4, ON ROOM AIR WITH NO SIGNS OF RESPIRATORY DISTRESS AT THIS TIME, WITH NON-PRODUCTIVE COUGH. ISOLATION PRECAUTIONS REMAINING AT THIS TIME. WILL FOLLOWING PLAN OF CARE AND CONTINUE TO MONITOR PATIENT.
--- NOTE | 2020-06-05 18:58 | NUR ---
MS RN NOTES PATIENT ALERT AND ORIENTED X 4, RESTING IN BED COMFORTABLY. ON ROOM AIR WITH NO SIGNS OF RESPIRATORY DISTRESS AT THIS TIME, NO SIGNS OF SOB AT THIS TIME, AND WITH NON-PRODUCTIVE COUGH, AND WITH EVEN NON-LABORED BREATHING. IV ACCESS INTACT AND PATENT. PATIENT PRESENT WITH NAUSEA, NO EMESIS PRESENT. ADMINISTERED PRN ZOFRAN ORDERED, WILL ENDORSE TO UPCOMING RN TO REASSESS PATIENT NAUSEA. MET ALL OF PATIENT'S NEEDS. PATIENT PRESENTS WITH NO SIGNS OF PAIN OR DISCOMFORT AT THIS TIME. SAFETY PRECAUTIONS IMPLEMENTED WITH BED LOCKED, BED IN THE LOWEST POSITION, BILATERAL SIDE RAILS UP, AND CALL LIGHT WITHIN EASY REACH OF PATIENT. WILL ENDORSE PLAN OF CARE TO UPCOMING RN.
--- NOTE | 2020-06-05 19:36 | NUR ---
RN OPENING NOTES PATIENT RECEIVED RESTING IN BED A/O X 4. STABLE ON RA WITH BREATHING EVEN AND UNLABORED, NO SOB NOTED. NO SIGNS OF ACUTE DISTRESS. NO COMPLAINTS OF PAIN OR DISCOMFORT AT THE MOMENT. PICC LINE LOCATED ON PRECIOUS. SAFETY PRECAUTIONS IN PLACE WITH BED IN LOWEST POSITION, CALL LIGHT WITHIN REACH, BREAKS ON, SIDE RAILS UP. WILL CONTINUE TO MONITOR THROUGHOUT THE NIGHT.
[2020-06-05] MEDS: ACETAMINOPHEN 325 MG TABLET PO PRN (20:50)
[2020-06-06] MEDS: INSULIN REGULAR, HUMAN 100 UNIT/ML 3 ML VIAL SQ PRN ×5 (01:21→18:56)
[2020-06-06] MEDS: BLOOD SUGAR DIAGNOSTIC 1 EACH STRIP IN SCH ×5 (01:22→18:57)
--- NOTE | 2020-06-06 06:43 | NUR ---
RN CLOSING NOTES PATIENT RESTING IN BED A/O X 4. STABLE ON RA WITH BREATHING EVEN AND UNLABORED, NO SOB NOTED. NO SIGNS OF ACUTE DISTRESS. NO COMPLAINTS OF PAIN OR DISCOMFORT AT THE MOMENT. PICC LINE LOCATED ON PRECIOUS. SAFETY PRECAUTIONS IN PLACE WITH BED IN LOWEST POSITION, CALL LIGHT WITHIN REACH, BREAKS ON, SIDE RAILS UP. ALL NEEDS ATTENDED TO. WILL ENDORSE TO ONCOMING SHIFT ABOUT WENDI.
--- NOTE | 2020-06-06 07:15 | NUR ---
ms rn received on bed,awake,alert,oriented x4,not in any form of distress, respirations even and unlabored,no sob noted, lungs are diminished,abdomen soft,positive bowel sounds, denies pain at this time`,all needs attended.
--- NOTE | 2020-06-06 07:20 | NUR ---
rn received on bed, awake,non verbal patient,respirations even and unlabored,no sob noted, lungs are diminished,abdomen soft,positive bowel sounds,no s/s of pain at this time,all needs attended. Addendum: 06/06/20 at 1629 by ROHAN JOSHI RN wrong patient disregard notes.
[2020-06-06 07:23] LABS: BILIRUBIN,DIRECT 0.1 mg/dL (0.0-0.2); BILIRUBIN,TOTAL 0.6 mg/dL (0.2-1.0); CALCIUM, SERUM 8.3 mg/dL (8.5-10.1); CREATININE 0.6 mg/dL (0.6-1.3); MAGNESIUM 2.4 mg/dL (1.8-2.4); PHOSPHORUS 2.6 mg/dL (2.5-4.9); POTASSIUM 3.4 mmol/L (3.5-5.1); TOTAL PROTEIN, SERUM 6.6 g/dL (6.4-8.2)
[2020-06-06 07:26] LABS: BASOPHILS % (AUTO) 0.5 % (0.0-2.0); EOSINOPHILS % (AUTO) 0.9 % (0.0-6.0); HEMATOCRIT 43 % (39-51); LYMPHOCYTES # (AUTO) 1.1 /CMM (0.8-4.8); MEAN CORPUSCULAR HGB CONC 35 g/dl (31.0-36.0); MEAN CORPUSCULAR VOLUME 94 fL (80-96); MONOCYTES # (AUTO) 0.8 /CMM (0.1-1.30); MONOCYTES % (AUTO) 14.7 % (2.0-12.0); NEUTROPHILS # (AUTO) 3.4 /CMM (1.8-8.9); NEUTROPHILS % (AUTO) 62.9 % (43.0-81.0); PLATELET COUNT (AUTO) 267 /CMM (150-450); RED BLOOD CELL COUNT(AUTO) 4.55 MIL/uL (4.5-6.0); WHITE BLOOD COUNT (AUTO) 5.4 K/uL (4.3-11.0)
[2020-06-06 08:00] VITALS: BP 110/70
--- NOTE | 2020-06-06 08:00 | NUR ---
ms rn refused breakfast, due meds given,tolerated well.
[2020-06-06] MEDS ORDERED: CALCITRIOL 0.25 MCG CAPSULE PO SCH (09:00)
[2020-06-06] MEDS: DEXAMETHASONE SOD PHOSPHATE 10 MG/ML VIAL IV SCH (09:17)
[2020-06-06] MEDS: CHOLECALCIFEROL 1,000 UNIT TABLET (VIT D3) PO SCH (09:18)
[2020-06-06] MEDS: ZINC SULFATE 220 MG CAPSULE PO SCH (09:18)
[2020-06-06] MEDS: CEFTRIAXONE 1 G in IV D5W 50 ML IV SCH (09:20)
[2020-06-06] MEDS: ENOXAPARIN SODIUM 40 MG/0.4 ML DISP.SYRIN SQ SCH (09:21)
[2020-06-06] MEDS ORDERED: METF-440 PO (09:43)
[2020-06-06] MEDS ORDERED: POTASSIUM CHLORIDE 20 MEQ TAB.PRT.SR PO ONE (10:00)
[2020-06-06] MEDS: AZITHROMYCIN 500 MG in IV D5W 250 ML IV SCH (10:30)
--- NOTE | 2020-06-06 11:00 | NUR ---
ms rn was seen by keyana tobar, patient will be discharge home today.
[2020-06-06] MEDS: Potassium Chloride 10 MEQ in IV NS 0.9% 1,000 ML IV PRN (11:58)
[2020-06-06] MEDS: INVESTIGATIONAL MED MISC 1 EA in IV NS 0.9% 250 ML IV SCH (14:08)
--- NOTE | 2020-06-06 16:31 | NUR ---
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
--- NOTE | 2020-06-06 19:00 | NUR ---
ms rn patient went home,instructed to quarantine himself at home.piccline removed w/ no complication.all needs attended.
== END 2020-06-07 | disposition home or self-care (01) | DRG 420 ==
LOC: ER 06:16 → ICU 09:12 → MEDSG2 06-05 16:09
PROVIDERS: ADMIT Nurse Practitioner Acute Care; ATTEND Internal Medicine
PROC: 30233L1 Transfusion of Nonautologous Fresh Plasma into Peripheral Vein, Percutaneous Approach (ICD-10-PCS; principal; 2020-06-02)
PROC: 02HV33Z Insertion of Infusion Device into Superior Vena Cava, Percutaneous Approach (ICD-10-PCS; 2020-06-03)
PROC: B548ZZA Ultrasonography of Superior Vena Cava, Guidance (ICD-10-PCS; 2020-06-03)
DX: E11.10 Type 2 diabetes mellitus with ketoacidosis without coma (principal); U07.1 COVID-19; J12.89 Other viral pneumonia; N17.0 Acute kidney failure with tubular necrosis; E86.0 Dehydration; D72.829 Elevated white blood cell count, unspecified; F41.9 Anxiety disorder, unspecified; E83.39 Other disorders of phosphorus metabolism; E87.1 Hypo-osmolality and hyponatremia; E87.6 Hypokalemia; E87.8 Other disorders of electrolyte and fluid balance, not elsewhere classified; E86.9 Volume depletion, unspecified; E83.51 Hypocalcemia; E86.1 Hypovolemia; E11.65 Type 2 diabetes mellitus with hyperglycemia; J96.91 Respiratory failure, unspecified with hypoxia
CPT/HCPCS: 36415; 36600; 71045-TC; 80048-TC; 80053-TC; 80061-TC; 80076-TC; 81000-TC; 82962-TC; 83605-TC; 83690-TC; 83735-TC; 83970; 84100-TC; 84484-TC; 85025-TC; 85378-TC; 85610-TC; 85730-TC; 86140-TC; 86850-TC; 87040-TC; 87081-TC; 87086-TC; 93308-TC; A9563; C1751; C9803-CS; G0378; J0456; J0610; J0696; J1100; J1650; J1815; J2060; J2405; J3480; J3490; J7030; J7042; J7050; J7060; P9017-BL